=== PATIENT | female | born 1950 | race Caucasian/White ===

== ENCOUNTER 2017-10-05 20:01 | Emergency (ER) | payer MEDICARE, BC ==
[~2017-10-05] VITALS: Ht 162.6 cm; Wt 74.8 kg
[~2017-10-05 20:01] MED LIST: AMLO1TAB PO; LOSA50TA3 PO; PRAV20TA4 PO
--- NOTE | 2017-10-05 20:45 | NUR ---
Pt ambulated to room with steady gait. Pt c/o swelling to right eye/face s/p mech fall. Pt alert and oriented x 4, no neuro deficits noted at this time. Dr. Khan at bedside for MSE
--- NOTE | 2017-10-05 21:05 | NUR ---
Pt to and from CT via w/c. Pt ambulated to and from br with steady gait. Pt requesting pain medication. Dr. Khan notified.
[2017-10-05] MEDS ORDERED: OXYCODONE/APAP 5-325 MG TABLET PO ONE (21:15)
[2017-10-05] MEDS ORDERED: ONDANSETRON ODT 4 MG TAB.RAPDIS SL ONE (21:15)
--- NOTE | 2017-10-05 21:22 | NUR ---
pt medicated for discomfort, will monitor for effects of medication.
[2017-10-05] MEDS ORDERED: ONDANSETRON ODT 4 MG TAB.RAPDIS ONE (21:34)
[2017-10-05] MEDS ORDERED: OXYCODONE/APAP 5-325 MG TABLET ONE (21:35)
--- NOTE | 2017-10-05 23:05 | NUR ---
Pt sts pain improved with previous medication. Pt stable for discharge per Dr. Khan. Pt given ACI. Pt verbalized understanding of dc instructions. Pt ambulated out of ER with steady gait and ride home.
[2017-10-05 23:08] VITALS: BP 125/75
== END 2017-10-05 23:09 | disposition home or self-care (01) ==
LOC: ER 20:02
DX: S00.03XA Contusion of scalp, initial encounter (principal); I10 Essential (primary) hypertension; E11.9 Type 2 diabetes mellitus without complications; Z88.2 Allergy status to sulfonamides; W18.30XA Fall on same level, unspecified, initial encounter; Y93.89 Activity, other specified; Y92.89 Other specified places as the place of occurrence of the external cause; Y99.8 Other external cause status
CPT/HCPCS: 70450; 70486; 99284; A4663; Q0162

== ENCOUNTER 2019-09-18 15:08 | Inpatient (IN) | payer MEDICARE, BC ==
[~2019-09-18] VITALS: Ht 162.6 cm; Wt 70.8 kg
[2019-09-18] MEDS ORDERED: METF-440 PO (16:45)
[2019-09-18] MEDS ORDERED: MORPHINE SULFATE 2 MG/1 ML DISP.SYRIN IV ONE (16:45)
[2019-09-18] MEDS ORDERED: EMPA25TA PO (16:45)
[2019-09-18] MEDS ORDERED: ASPI81TA31 PO (16:45)
[2019-09-18] MEDS ORDERED: ONDANSETRON 4 MG/2 ML VIAL IV ONE (16:45)
[2019-09-18] MEDS ORDERED: ONDANSETRON 4 MG/2 ML VIAL ONE (16:50)
[2019-09-18] MEDS ORDERED: MORPHINE SULFATE 2 MG/1 ML DISP.SYRIN ONE (16:50)
[2019-09-18 16:53] LABS: BASOPHILS # (AUTO) 0.1 K/uL (0.0-8.0); BASOPHILS % (AUTO) 0.5 % (0.0-2.0); EOSINOPHILS # (AUTO) 0.1 K/uL (0.0-0.7); EOSINOPHILS % (AUTO) 0.4 % (0.0-7.0); HEMATOCRIT 46.5 % (31.2-41.9); HEMOGLOBIN 15.5 g/dL (10.9-14.3); LYMPHOCYTES # (AUTO) 1.3 K/uL (20.0-40.0); LYMPHOCYTES % (AUTO) 9.7 % (20.5-51.5); MEAN CORPUSCULAR HEMOGLOBIN 29.9 uug (24.7-32.8); MEAN CORPUSCULAR HGB CONC 33 g/dL (32.3-35.6); MEAN CORPUSCULAR VOLUME 89.7 fL (75.5-95.3); MONOCYTES # (AUTO) 0.9 K/uL (2.0-10.0); MONOCYTES % (AUTO) 6.7 % (0.0-11.0); NEUTROPHILS # (AUTO) 10.8 K/uL (1.8-8.9); NEUTROPHILS % (AUTO) 82.7 % (38.5-71.5); PLATELET COUNT (AUTO) 224 K/uL (179-408); RED BLOOD CELL COUNT(AUTO) 5.19 MIL/uL (3.63-4.92); WHITE BLOOD COUNT (AUTO) 13.1 K/uL (3.8-11.8)
[2019-09-18 17:00] LABS: POTASSIUM 3.8 mmol/L (3.5-5.1)
[2019-09-18 17:06] LABS: BILIRUBIN,DIRECT 0.1 mg/dL (0.0-0.2); BILIRUBIN,TOTAL 0.4 mg/dL (0.2-1.0); TOTAL PROTEIN, SERUM 7.3 g/dL (6.4-8.2)
[2019-09-18 18:49] VITALS: BP 125/52
[2019-09-18] MEDS ORDERED: DEXTROSE 50% 50 ML DISP.SYRIN IV PRN (19:45)
[2019-09-18] MEDS ORDERED: NITROGLYCERIN 0.4 MG/TAB BOTTLE SL PRN (19:45)
[2019-09-18] MEDS ORDERED: MAGNESIUM HYDROXIDE 30 ML LIQUID UDC PO PRN (19:45)
[2019-09-18] MEDS ORDERED: ACETAMINOPHEN 325 MG TABLET PO PRN (19:45)
[2019-09-18] MEDS ORDERED: Z GUARD REMEDY PASTE 57 GM TUBE TOP PRN (19:45)
[2019-09-18 20:13] VITALS: BP 124/57
[2019-09-18 21:20] LABS: *BILIRUBIN,URIN NEGATIVE (NEGATIVE); *CLARITY,URINE CLEAR (CLEAR); *COLOR,URINE YELLOW (YELLOW); *KETONES,URINE 2+ (NEGATIVE); *UROBILINOGEN,URINE 0.2 E.U./dl (NORMAL); LEUKOCYTE ESTERASE ,URINE NEGATIVE (NEGATIVE); NITRITE, URINE NEGATIVE (NEGATIVE); PH,URINE 5.5 (5.0-8.0); UGLUCOSE 2+ (NEGATIVE)
[2019-09-18] MEDS: BLOOD SUGAR DIAGNOSTIC 1 EACH STRIP VI SCH (21:24)
[2019-09-18 21:28] LABS: *BLOOD, URINE TRACE (NEGATIVE)
[2019-09-18 21:29] LABS: MUCUS,URINE FEW /LPF (0-FEW); RBC,URINE 0-3 /HPF (0-3); SQUAMOUS EPITHELIAL CELL,UR FEW /HPF (NONE SEEN); WBC,URINE 0-3 /HPF (0-3)
[2019-09-18] MEDS: METOPROLOL TARTRATE 25 MG TABLET PO SCH (21:31)
[2019-09-18] MEDS: ONDANSETRON 4 MG/2 ML VIAL IV PRN (21:31)
[2019-09-18] MEDS: ENOXAPARIN SODIUM 40 MG/0.4 ML DISP.SYRIN SQ SCH (21:47)
[2019-09-18] MEDS: INSULIN REGULAR, HUMAN 300 UNIT/3 ML VIAL SQ PRN (21:48)
[2019-09-18] MEDS: IV NS 1000 ML 1,000 ML IV PRN (21:50)
[2019-09-18] MEDS: MORPHINE SULFATE 2 MG/1 ML DISP.SYRIN IV PRN (21:53)
[2019-09-18] MEDS: TEMAZEPAM 15 MG CAPSULE PO PRN (22:25)
[2019-09-19 00:41] VITALS: BP 125/64
[2019-09-19 04:59] VITALS: BP 132/66
[2019-09-19 06:33] LABS: BASOPHILS % (AUTO) 0.4 % (0.0-2.0); EOSINOPHILS # (AUTO) 0.1 K/uL (0.0-0.7); EOSINOPHILS % (AUTO) 0.9 % (0.0-7.0); HEMATOCRIT 40.5 % (31.2-41.9); HEMOGLOBIN 13.5 g/dL (10.9-14.3); LYMPHOCYTES # (AUTO) 1.4 K/uL (20.0-40.0); LYMPHOCYTES % (AUTO) 19.3 % (20.5-51.5); MEAN CORPUSCULAR HGB CONC 33 g/dL (32.3-35.6); MEAN CORPUSCULAR VOLUME 89.8 fL (75.5-95.3); MONOCYTES # (AUTO) 0.9 K/uL (2.0-10.0); NEUTROPHILS # (AUTO) 4.8 K/uL (1.8-8.9); NEUTROPHILS % (AUTO) 67.4 % (38.5-71.5); PLATELET COUNT (AUTO) 187 K/uL (179-408); RED BLOOD CELL COUNT(AUTO) 4.51 MIL/uL (3.63-4.92); WHITE BLOOD COUNT (AUTO) 7.1 K/uL (3.8-11.8)
[2019-09-19 06:47] LABS: CARBON DIOXIDE 25 mmol/L (21-32); CHLORIDE 105 mmol/L (98-107); CHOLESTEROL 173 mg/dL (<200); CREATININE 0.7 mg/dL (0.6-1.3); GLUCOSE 127 mg/dL (74-106); HDL CHOLESTEROL 56 mg/dL (40-60); PHOSPHOROUS 3.5 mg/dL (2.5-4.9); POTASSIUM 3.8 mmol/L (3.5-5.1); TRIGLYCERIDES 213 MG/DL (30-150); UREA NITROGEN, BLOOD 15 mg/dL (7-18)
[2019-09-19] MEDS: PANTOPRAZOLE SODIUM 40 MG TABLET.DR PO SCH (06:47)
[2019-09-19] MEDS: BLOOD SUGAR DIAGNOSTIC 1 EACH STRIP VI SCH ×4 (06:51→20:45)
[2019-09-19] MEDS: ASPIRIN 81 MG TAB.CHEW PO SCH (09:05)
[2019-09-19] MEDS: LOSARTAN POTASSIUM 50 MG TABLET PO SCH (09:05)
[2019-09-19] MEDS: AMLODIPINE 5 MG TABLET PO SCH (09:06)
[2019-09-19] MEDS: METOPROLOL TARTRATE 25 MG TABLET PO SCH ×2 (09:06→20:29)
[2019-09-19] MEDS: IV NS 1000 ML 1,000 ML IV PRN (10:42)
[2019-09-19] MEDS: ONDANSETRON 4 MG/2 ML VIAL IV PRN (11:00)
[2019-09-19] MEDS: MORPHINE SULFATE 2 MG/1 ML DISP.SYRIN IV PRN (11:01)
[2019-09-19 11:40] VITALS: BP 136/54
[2019-09-19] MEDS: INSULIN REGULAR, HUMAN 300 UNIT/3 ML VIAL SQ PRN ×2 (12:11→20:48)
[2019-09-19] MEDS: HYDROCODONE/APAP 5-325MG TABLET PO PRN ×2 (15:47→20:28)
[2019-09-19 16:14] VITALS: BP 125/59
[2019-09-19] MEDS ORDERED: METF-494 PO (16:56)
[2019-09-19 20:09] VITALS: BP 143/64
[2019-09-19] MEDS: ENOXAPARIN SODIUM 40 MG/0.4 ML DISP.SYRIN SQ SCH (20:31)
[2019-09-19] MEDS ORDERED: ATORVASTATIN 10 MG TABLET PO SCH (21:00)
[2019-09-20] MEDS: TEMAZEPAM 15 MG CAPSULE PO PRN ×2 (00:28→00:37)
[2019-09-20 00:42] VITALS: BP 142/59
[2019-09-20] MEDS: IV NS 1000 ML 1,000 ML IV PRN (02:53)
[2019-09-20 05:02] VITALS: BP 153/65
[2019-09-20 06:28] LABS: CREATININE 0.7 mg/dL (0.6-1.3); POTASSIUM 3.9 mmol/L (3.5-5.1)
[2019-09-20] MEDS: PANTOPRAZOLE SODIUM 40 MG TABLET.DR PO SCH (06:48)
[2019-09-20] MEDS: BLOOD SUGAR DIAGNOSTIC 1 EACH STRIP VI SCH ×2 (06:48→11:26)
[2019-09-20 06:56] LABS: BASOPHILS % (AUTO) 0.5 % (0.0-2.0); EOSINOPHILS # (AUTO) 0.2 K/uL (0.0-0.7); EOSINOPHILS % (AUTO) 2.2 % (0.0-7.0); HEMATOCRIT 43.8 % (31.2-41.9); HEMOGLOBIN 14.4 g/dL (10.9-14.3); LYMPHOCYTES # (AUTO) 1.7 K/uL (20.0-40.0); LYMPHOCYTES % (AUTO) 24.5 % (20.5-51.5); MEAN CORPUSCULAR HEMOGLOBIN 29.9 uug (24.7-32.8); MEAN CORPUSCULAR HGB CONC 33 g/dL (32.3-35.6); MEAN CORPUSCULAR VOLUME 91.2 fL (75.5-95.3); MONOCYTES # (AUTO) 0.7 K/uL (2.0-10.0); MONOCYTES % (AUTO) 10.5 % (0.0-11.0); NEUTROPHILS # (AUTO) 4.3 K/uL (1.8-8.9); NEUTROPHILS % (AUTO) 62.3 % (38.5-71.5); PLATELET COUNT (AUTO) 191 K/uL (179-408); WHITE BLOOD COUNT (AUTO) 6.8 K/uL (3.8-11.8)
[2019-09-20] MEDS ORDERED: REGADENOSON 0.4 MG/5 ML PREFILLED SYR IV ONE (09:00)
[2019-09-20] MEDS: ASPIRIN 81 MG TAB.CHEW PO SCH (09:40)
[2019-09-20] MEDS: LOSARTAN POTASSIUM 50 MG TABLET PO SCH (09:40)
[2019-09-20] MEDS: METOPROLOL TARTRATE 25 MG TABLET PO SCH (09:41)
[2019-09-20] MEDS: AMLODIPINE 5 MG TABLET PO SCH (09:41)
[2019-09-20 11:37] VITALS: BP 137/59
[2019-09-20] MEDS: INSULIN REGULAR, HUMAN 300 UNIT/3 ML VIAL SQ PRN (12:08)
[2019-09-20] MEDS ORDERED: AMLO5TAB9 PO (15:47)
[2019-09-20] MEDS ORDERED: HYDR-3326 PO (15:47)
[2019-09-20 16:18] VITALS: BP 146/63
== END 2019-09-20 16:30 | disposition home or self-care (01) | DRG 563 ==
LOC: ER 15:09 → TELE3 18:24
PROVIDERS: ADMIT Hospitalist; ATTEND Hospitalist
DX: S42.292A Other displaced fracture of upper end of left humerus, initial encounter for closed fracture (principal); I47.1 Supraventricular tachycardia; S00.81XA Abrasion of other part of head, initial encounter; Y92.89 Other specified places as the place of occurrence of the external cause; S42.212A Unspecified displaced fracture of surgical neck of left humerus, initial encounter for closed fracture; Z91.041 Radiographic dye allergy status; E78.5 Hyperlipidemia, unspecified; D75.1 Secondary polycythemia; E86.0 Dehydration; R07.89 Other chest pain; E11.9 Type 2 diabetes mellitus without complications; M50.221 Other cervical disc displacement at C4-C5 level; M48.02 Spinal stenosis, cervical region; Z88.2 Allergy status to sulfonamides; I70.0 Atherosclerosis of aorta; I10 Essential (primary) hypertension; E78.1 Pure hyperglyceridemia; W01.0XXA Fall on same level from slipping, tripping and stumbling without subsequent striking against object, initial encounter; Y93.01 Activity, walking, marching and hiking; Z91.14 Patient's other noncompliance with medication regimen; Z82.49 Family history of ischemic heart disease and other diseases of the circulatory system; Z79.899 Other long term (current) drug therapy; M77.9 Enthesopathy, unspecified; D72.829 Elevated white blood cell count, unspecified
CPT/HCPCS: 36415; 70030-TC; 70450; 71045; 72125; 73030; 78452; 83735; 84100; 85025; 85730; 87086; 93005; 93307; 93880; A4663; A9502; G0378; J1650; J1815; J2270; J2405; J2785; J7030

== ENCOUNTER 2024-07-10 07:39 | Emergency (ER) | payer MEDICARE, BC ==
[~2024-07-10] VITALS: Ht 162.6 cm; Wt 68.5 kg
[~2024-07-10 07:39] MED LIST changes: +AMLO-212 PO; -AMLO1TAB PO; +ASPI81TA31 PO; +EMPA25TA PO; +HYDR-3326 PO; +METF-494 PO
[2024-07-10] MEDS ORDERED: ONDANSETRON 4 MG/2 ML VIAL ONE (08:22)
[2024-07-10 08:24] LABS: BASOPHILS % (AUTO) 0.6 % (0.0-2.0); EOSINOPHILS # (AUTO) 0.1 K/uL (0.0-0.7); EOSINOPHILS % (AUTO) 1.2 % (0.0-7.0); HEMATOCRIT 40.3 % (31.2-41.9); HEMOGLOBIN 13.7 g/dL (10.9-14.3); LYMPHOCYTES # (AUTO) 0.9 K/uL (0.8-4.8); LYMPHOCYTES % (AUTO) 13.4 % (20.5-51.5); MEAN CORPUSCULAR HEMOGLOBIN 30.1 uug (24.7-32.8); MEAN CORPUSCULAR HGB CONC 34 g/dL (32.3-35.6); MEAN CORPUSCULAR VOLUME 88.5 fL (75.5-95.3); MONOCYTES # (AUTO) 0.4 K/uL (0.1-1.30); NEUTROPHILS # (AUTO) 5.5 K/uL (1.8-8.9); NEUTROPHILS % (AUTO) 78.8 % (38.5-71.5); PLATELET COUNT (AUTO) 200 K/uL (179-408); RED BLOOD CELL COUNT(AUTO) 4.56 MIL/uL (3.63-4.92); RED CELL DISTRIBUTION WIDTH 12.9 % (12.3-17.7)
[2024-07-10 08:26] LABS: DIFFERENTIAL COMMENT 1
[2024-07-10 08:34] LABS: CARBON DIOXIDE 29 mmol/L (21-32); CHLORIDE 102 mmol/L (98-107); CREATININE 0.9 mg/dL (0.6-1.3); GLUCOSE 245 mg/dL (74-106); SODIUM SERUM 136 mmol/L (136-145); UREA NITROGEN, BLOOD 22 mg/dL (7-18)
[2024-07-10] MEDS: IV NORMAL SALINE 1000 ML BAG IV ONE (08:40)
[2024-07-10] MEDS: ONDANSETRON 4 MG/2 ML VIAL IV ONE (08:41)
[2024-07-10 08:47] LABS: ALANINE AMINOTRANSFERASE 38 U/L (14-59); ALBUMIN 3.7 g/dL (3.4-5.0); ALKALINE PHOSPHATASE 89 U/L (50-136); ASPARTATE AMINOTRANSFERASE 17 U/L (15-37); BILIRUBIN,DIRECT 0.1 mg/dL (0.0-0.2); BILIRUBIN,TOTAL 0.6 mg/dL (0.2-1.0); NT-PRO BNP 74 pg/mL (0-125); TOTAL PROTEIN, SERUM 6.9 g/dL (6.4-8.2)
[2024-07-10 10:02] VITALS: BP 140/51; O2SAT 99
== END 2024-07-10 10:03 | disposition home or self-care (01) ==
LOC: ER 07:39
DX: E11.65 Type 2 diabetes mellitus with hyperglycemia (principal); R42 Dizziness and giddiness; I10 Essential (primary) hypertension; Z79.82 Long term (current) use of aspirin; Z79.84 Long term (current) use of oral hypoglycemic drugs; Z79.899 Other long term (current) drug therapy; Z79.891 Long term (current) use of opiate analgesic; Z20.822 Contact with and (suspected) exposure to COVID-19; Z88.2 Allergy status to sulfonamides; Z91.040 Latex allergy status
CPT/HCPCS: 99285; 96374; 71045; 87426; 80076; 80048; 82962; 83880; 85025; 84484; 36415; 93005; J2405; J7040; A4606; A4663